=== PATIENT | male | born 1995 | race Caucasian/White ===

== ENCOUNTER 2022-02-12 14:09 | Observation (INO) | payer OTHER, BC ==
[~2022-02-12 14:09] MED LIST: Gadobenate Dimeglumine 529 MG/1 ML (20ML VIAL) ONE; ISOVUE-370 76%-LOCM 1 ML ONE
[2022-02-12] MEDS ORDERED: Lorazepam 2 MG/ML VIAL ONE (14:29)
[2022-02-12 14:55] LABS: Hemoglobin 15.6 g/dL (14.0-18.0); Mean Corpuscular HGB CONC 32.7 g/dL (32.0-36.0); Mean Corpuscular Hemoglobin 32.3 pg (27.0-31.0); Mean Corpuscular Volume 98.7 fL (78.0-98.0); Mean Platelet Volume 6.4 fL (7.4-10.4); Platelet Count 384 thou/uL (130-400); RBC Distribution Width 11.5 % (11.5-14.5); Red Blood Cell (RBC) Count 4.82 mill/uL (4.70-6.10); White Blood Cell (WBC) Count 19.9 thou/uL (4.8-10.8)
[2022-02-12 15:08] LABS: Eosinophils 1 % (0-10); Lymphocytes 19 % (21-51); MDiff Complete? YES; Monocytes 7 % (0-10); Neutrophil 55 % (42-75); Platelet Morphology Comment Appears Adequate; RBC Morphology Normal; Reactive Lymphocytes 18 % (0-10)
[2022-02-12 15:23] LABS: Acetaminophen Less than 10.0 mcg/mL (10.0-30.0); Alcohol Less than 10 mg/dL (Less than 10); Salicylate Less than 8.0 mg/dL (15.0-30.0)
[2022-02-12 15:24] LABS: ALT (SGPT) 16 U/L (8-55); AST (SGOT) 18 U/L (5-34); Albumin 4.5 g/dL (3.5-5.0); Alkaline Phosphatase 59 U/L (40-110); Anion Gap 31 mmol/L (10-20); BUN (Urea Nitrogen) 20 mg/dL (8.9-20.6); Bilirubin, Total 0.6 mg/dL (0.2-1.2); Calc. Creatinine Clearance 0 mL/min (70-130); Calcium 9.1 mg/dL (7.8-10.44); Chloride 109 mmol/L (98-107); Estimated GFR 65; Globulin 2.4 g/dL (2.4-3.5); Glucose 153 mg/dL (70-105); Potassium 3.9 mmol/L (3.5-5.1); Protein, Total 6.9 g/dL (6.0-8.3); Sodium 145 mmol/L (136-145)
[2022-02-12 15:29] LABS: Carbon Dioxide 9 mmol/L (22-29)
[2022-02-12] MEDS ORDERED: Bupivacaine 0.25% 10 ML VIAL ONE (15:47)
[2022-02-12] MEDS ORDERED: Boostrix 0.5 ML (Tdap) VIAL ONE (15:47)
[2022-02-12] MEDS ORDERED: levETIRAcetam 500 MG/5 ML VIAL ONE ×2 (16:41→17:23)
[2022-02-12 16:44] LABS: Alcohol Less than 10 mg/dL (Less than 10); Anion Gap 17 mmol/L (10-20); BUN (Urea Nitrogen) 18 mg/dL (8.9-20.6); Calc. Creatinine Clearance 0 mL/min (70-130); Calcium 9.3 mg/dL (7.8-10.44); Carbon Dioxide 16 mmol/L (22-29); Chloride 111 mmol/L (98-107); Estimated GFR 80; Glucose 116 mg/dL (70-105); Potassium 4.6 mmol/L (3.5-5.1); Sodium 139 mmol/L (136-145)
[2022-02-12] MEDS ORDERED: CEFAZOLIN 2 GM VIAL ONE (16:54)
[2022-02-12] MEDS ORDERED: Dextrose 5% in Water 1,000 ML IV PRN (16:55)
[2022-02-12] MEDS ORDERED: Dextrose 50% Abboject 50 ML SYRINGE SLOW IVP PRN (16:55)
[2022-02-12] MEDS ORDERED: hydrALAZINE 20 MG/ML VIAL SLOW IVP PRN (16:55)
[2022-02-12] MEDS ORDERED: Ondansetron ODT 4 MG TAB PO PRN (16:55)
[2022-02-12] MEDS ORDERED: Ondansetron PF 4 MG/2 ML Vial IVP PRN (16:55)
[2022-02-12 17:14] LABS: Hemoglobin A1c 4.6 % (4.0-6.0)
[2022-02-12] MEDS ORDERED: Acetaminophen 325 MG TAB PO SCH (18:00)
[2022-02-12] MEDS ORDERED: Sodium Chloride 0.9% 1,000 ML IV SCH (19:15)
[2022-02-12 19:32] LABS: Lactic Acid 0.9 mmol/L (0.5-2.2)
[2022-02-12] MEDS ORDERED: Cyclobenzaprine 10 MG TAB PO PRN (19:39)
[2022-02-12] MEDS ORDERED: Acetaminophen/Codeine 30-300mg Tablet PO PRN (19:40)
[2022-02-12] MEDS: Famotidine 20 MG TAB PO SCH (20:53)
[2022-02-12] MEDS: Gabapentin 300 MG CAP PO SCH (20:54)
[2022-02-12] MEDS: Senokot S 8.6-50 MG TAB PO SCH (20:56)
[2022-02-12] MEDS: Sodium Chloride 0.9% 1,000 ML IV SCH ×2 (21:26→22:11)
[2022-02-12] MEDS ORDERED: Ibuprofen 600 MG TAB PO SCH (22:00)
[2022-02-12 23:03] VITALS: BMI 20.2
[2022-02-12 23:05] LABS: Amphetamine Not Detected (NotDetected); Barbiturates Screen Not Detected (NotDetected); Benzodiazepine Screen Not Detected (NotDetected); Cocaine Metabolite Screen Not Detected (NotDetected); Methadone Not Detected (NotDetected); Methamphetamine Not Detected (NotDetected); Opiate Screen Not Detected (NotDetected); Oxycodone Screen Not Detected (NotDetected); Phencyclidine (PCP) Not Detected (NotDetected); THC/Cannabinoid Screen Detected (NotDetected); Tricyclic Screen Not Detected (NotDetected)
[2022-02-12] MEDS: Acetaminophen 325 MG TAB PO SCH (23:57)
[2022-02-13 01:24] LABS: SARS-CoV-2 NAA Rapid Test Not Detected (NotDetected)
[2022-02-13] MEDS: Acetaminophen 325 MG TAB PO SCH ×3 (05:16→17:43)
[2022-02-13 05:49] LABS: #Eosinphils 0.1 thou/uL (0.0-0.7); #Lymphocytes 2.6 thou/uL (1.20-3.40); #Neutrophils 7.5 thou/uL (1.40-6.50); %Basophils 0.4 % (0.0-1.0); %Eosinophils 0.5 % (0.0-10.0); %Lymphocytes 23.2 % (21.0-51.0); %Monocytes 8.6 % (0.0-10.0); %Neutrophils 67.4 % (42.0-75.0); Hemoglobin 14.3 g/dL (14.0-18.0); Mean Corpuscular HGB CONC 33.9 g/dL (32.0-36.0); Mean Corpuscular Hemoglobin 32.5 pg (27.0-31.0); Mean Corpuscular Volume 95.6 fL (78.0-98.0); Mean Platelet Volume 6.1 fL (7.4-10.4); Platelet Count 265 thou/uL (130-400); RBC Distribution Width 11.6 % (11.5-14.5); White Blood Cell (WBC) Count 11.1 thou/uL (4.8-10.8)
[2022-02-13 06:01] LABS: Phosphorus 3.1 mg/dL (2.3-4.7)
[2022-02-13 06:02] LABS: Anion Gap 13 mmol/L (10-20); BUN (Urea Nitrogen) 10 mg/dL (8.9-20.6); Calc. Creatinine Clearance 105 mL/min (70-130); Calcium 8.4 mg/dL (7.8-10.44); Carbon Dioxide 21 mmol/L (22-29); Chloride 110 mmol/L (98-107); Estimated GFR 91; Glucose 124 mg/dL (70-105); Magnesium 2.2 mg/dL (1.6-2.6); Sodium 140 mmol/L (136-145)
[2022-02-13] MEDS: Acetaminophen/Codeine 30-300mg Tablet PO PRN (08:31)
[2022-02-13] MEDS: Gabapentin 300 MG CAP PO SCH ×3 (08:31→20:01)
[2022-02-13] MEDS: Famotidine 20 MG TAB PO SCH ×2 (08:31→20:00)
[2022-02-13] MEDS: Senokot S 8.6-50 MG TAB PO SCH ×2 (08:31→20:01)
[2022-02-13] MEDS: Polyethylene Glycol 3350 17 GM Packet PO SCH (08:31)
[2022-02-13] MEDS: levETIRAcetam 500 MG TAB PO SCH ×2 (08:31→20:01)
[2022-02-13] MEDS ORDERED: Scopolamine 1.5 mg/72 hour Patch TD SCH (10:00)
[2022-02-14] MEDS: Acetaminophen 325 MG TAB PO SCH ×3 (00:06→13:04)
[2022-02-14] MEDS: Gabapentin 300 MG CAP PO SCH (09:42)
[2022-02-14] MEDS: levETIRAcetam 500 MG TAB PO SCH (09:43)
[2022-02-14] MEDS: Famotidine 20 MG TAB PO SCH (09:43)
[2022-02-14] MEDS: Polyethylene Glycol 3350 17 GM Packet PO SCH (09:44)
[2022-02-14] MEDS: Senokot S 8.6-50 MG TAB PO SCH (09:44)
[2022-02-14] MEDS: Acetaminophen/Codeine 30-300mg Tablet PO PRN (09:48)
[2022-02-14 11:23] VITALS: BP 94/57; TEMP 98.3
== END 2022-02-14 14:30 | disposition home or self-care (01) ==
LOC: ERS 14:09 → SURG A 16:55
PROVIDERS: ADMIT Surgery; ATTEND Surgery
DX: S06.0X9A Concussion with loss of consciousness of unspecified duration, initial encounter (principal); R56.9 Unspecified convulsions; S42.032A Displaced fracture of lateral end of left clavicle, initial encounter for closed fracture; S01.01XA Laceration without foreign body of scalp, initial encounter; K21.9 Gastro-esophageal reflux disease without esophagitis; N17.9 Acute kidney failure, unspecified; E87.2 Acidosis; F17.290 Nicotine dependence, other tobacco product, uncomplicated; Z20.822 Contact with and (suspected) exposure to COVID-19; V47.5XXA Car driver injured in collision with fixed or stationary object in traffic accident, initial encounter; Y92.411 Interstate highway as the place of occurrence of the external cause
CPT/HCPCS: 36415; 36416; 70450; 70486; 70553; 71260; 72125; 74177; 80048; 80053; 80306; 80307; 82550; 83036; 83605; 83735; 84100; 84145; 84146; 84484; 85025; 90715; 95819; 95957; A9577; G0378; J0690; J1953; J2060; J7050; Q9966; S0020; U0002

== ENCOUNTER 2022-05-13 14:22 | Outpatient (CLI) | payer BC | END 2022-05-13 14:23 | disposition home or self-care (01) | LOC: SCSMRI 14:22 | PROVIDERS: ATTEND Psychiatry & Neurology Neurology | DX: R56.9 Unspecified convulsions (principal) | CPT/HCPCS: 70553 ==

== ENCOUNTER 2023-05-18 07:59 | Outpatient (CLI) | payer BC | END 2023-05-18 08:00 | disposition home or self-care (01) | LOC: SCSMRI 07:59 | PROVIDERS: ATTEND Psychiatry & Neurology Neurology | DX: R56.9 Unspecified convulsions (principal); R90.89 Other abnormal findings on diagnostic imaging of central nervous system | CPT/HCPCS: 70553 ==